=== PATIENT | male | born 1985 | race Caucasian/White ===

== ENCOUNTER 2016-03-30 19:58 | Emergency (ER) | payer SELFPAY ==
[~2016-03-30] VITALS: Ht 172.7 cm; Wt 81.6 kg
[2016-03-30 20:05] VITALS: BP 132/83
== END 2016-03-30 20:42 | disposition home or self-care (01) ==
LOC: ER 19:58
DX: R51 Headache (principal); J06.9 Acute upper respiratory infection, unspecified; F17.200 Nicotine dependence, unspecified, uncomplicated
CPT/HCPCS: A4606; Z7502; Z7610